=== PATIENT | male | born 1955 | race Caucasian/White ===

== ENCOUNTER → 2016-12-05 | Outpatient (CLI) | payer MEDICARE, MEDICAID | END | disposition home or self-care (01) | LOC: YCFC.O 08:16 | PROVIDERS: ATTEND Nurse Practitioner Family | DX: E78.2 Mixed hyperlipidemia (principal); N19 Unspecified kidney failure; Z12.5 Encounter for screening for malignant neoplasm of prostate; Z79.899 Other long term (current) drug therapy | CPT/HCPCS: 36415; 80053; 80061; 80307; 81001; 82043; 82570; 85025; G0103 ==

== ENCOUNTER 2017-01-17 15:26 | Emergency (ER) | payer MEDICARE, MEDICAID ==
--- NOTE | 2017-01-17 16:23 | RAD ---
EXAM DESCRIPTION: Abdomen Series CLINICAL HISTORY: 61 years Male ,upper and lower abd pain and nausea COMPARISON: 05/07/2016 TECHNIQUE: Frontal view chest x-ray and two views of the abdomen. FINDINGS: The cardiomediastinal silhouette appears unremarkable. No consolidating infiltrates or pleural effusions. No free air is identified beneath the hemidiaphragms. No dilated loops of bowel to suggest obstruction. Degenerative changes in the lower thoracic and the lumbar spine. IMPRESSION: No acute plain film abnormality is identified. Electronically signed by: Charla Anderson 01/17/2017 4:22 PM CDT
[2017-01-17 17:19] VITALS: TEMP 97.9
[2017-01-17] MEDS ORDERED: MAGNESIUM HYDROXIDE 30 ML UD PO ONE (17:20)
--- NOTE | 2017-01-17 17:20 | ED.PDOC ---
History of Present Illness - General Chief Complaint: Problem Stated Complaint: FLANK PAIN Time Seen by Provider: 01/17/17 15:40 Source: patient Exam Limitations: no limitations - History of Present Illness Initial Comments: The patient is a 61-year-old male presenting to the emergency room secondary to symptoms of mild nausea and some lower abdominal cramping intermittent for the last week. He has had constipation issues in the past. No diarrhea. No fevers. He has not been throwing up. He has had mildbackaches with the abdominal discomfort. He has been taking MiraLAX intermittently. The patient also does take some potassium in his had labs checked in a while. The patient does have some anxiety issues. Additionally he does seem to have some attention difficulties. Timing/Duration: 1 week Severity: mild Improving Factors: nothing Worsening Factors: nothing Associated Symptoms: denies symptoms Allergies/Adverse Reactions: Allergies NO KNOWN ALLERGY Allergy (Verified 08/18/14 23:58) Home Medications: Ambulatory Orders Esomeprazole Magnesium [Nexium] 20 mg PO DAILY 08/14/14 Potassium Chloride Microencaps [Klor-Con M20] 20 meq PO DAILY 08/14/14 Rosuvastatin Calcium [Crestor] 40 mg PO DAILY 08/14/14 Aspirin [Aspirin Adult Low Dose] 81 mg PO 05/03/16 Clopidogrel Bisulfate 75 mg PO DAILY 05/03/16 HYDROcodone 7.5MG/APAP 325MG [[place] 7.5/325] 7.5 mg PO PRN 05/03/16 Review of Systems - Review of Systems Constitutional: States: malaise EENTM: States: no symptoms reported Respiratory: States: no symptoms reported Cardiology: States: no symptoms reported Gastrointestinal/Abdominal: States: abdominal pain, constipation, nausea Genitourinary: States: no symptoms reported Musculoskeletal: States: no symptoms reported - chronic problems only Skin: States: no symptoms reported Neurological: States: anxiety, paresthesia - occasional in bilateral arms. Long -standing. Endocrine: States: no symptoms reported All other Systems: No Change from Baseline Past Medical History (General) - Patient Medical History Hx Seizures: No Hx Stroke: No Hx Dementia: No Hx Asthma: No Hx of COPD: Yes Hx Cardiac Disorders: No Hx Congestive Heart Failure: No Hx Pacemaker: No Hx Hypertension: Yes Hx Thyroid Disease: No Hx Diabetes: No Hx Gastroesophageal Reflux: Yes Hx Renal Disease: No Hx Cancer: No Hx of HIV: No Hx Hepatitis C: No Hx MRSA: No - Vaccination History Hx Tetanus, Diphtheria Vaccination: No Hx Influenza Vaccination: No Hx Pneumococcal Vaccination: No - Social History Hx Tobacco Use: Yes Hx Alcohol Use: No Hx Substance Use: No Hx Substance Use Treatment: No Hx Depression: No Hx Physical Abuse: No Hx Emotional Abuse: No Hx Suspected Abuse: No - Female History Patient : No Family Medical History - Family History Mother Family History: Unknown Physical Exam - Physical Exam General Appearance: Alert, Anxious, Comfortable, No apparent distress Eye Exam: bilateral normal Ears, Nose, Throat: hearing grossly normal Neck: non-tender, supple Respiratory: lungs clear, normal breath sounds, no respiratory distress, no accessory muscle use Cardiovascular/Chest: normal peripheral pulses, no edema, other - regular rate Peripheral Pulses: radial,right: 2+, radial,left: 2+, dorsalis pedis,right: 2+, dorsalis pedis,left: 2+ Gastrointestinal/Abdominal: soft, other - mild discomfort in the right upper quadrant and lower abdomen. No rebound or peritoneal signs. No definite hernias. No definite palpable masses. 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 Lab work and x-ray appear reassuring. Source is most likely constipation. The patient received a dose of milk of magnesia here today. He needs to increase his fluid intake. He needs to continue his MiraLAX. Adding something along the lines of FiberCon or Metamucil daily may also help. The patient does have chronic elevation of his muscle enzymes. He is uncertain what the source of this is and I do not have any records telling me what the source is. For now I'm not going to change any of his medications. He does need to discuss this with his primary care doctor the next time he sees him next week. He needs to follow-up with his primary care doctor next week. ER warnings were given for any worsening. - Results/Orders Results/Orders: Laboratory Results - last 24 hr 01/17/17 01/17/17 01/17/17 16:11 16:25 16:25 WBC 9.2 RBC 5.38 Hgb 16.3 Hct 49.5 MCV 91.9 MCH 30.3 MCHC 33.0 RDW 14.4 Plt Count 201 MPV 8.0 Absolute Neuts (auto) 6.30 Absolute Lymphs (auto) 2.00 Absolute Monos (auto) 0.70 Absolute Eos (auto) 0.10 Absolute Basos (auto) 0.10 Neutrophils % 68.7 Lymphocytes % 21.6 Monocytes % 7.8 Eosinophils % 1.0 Basophils % 0.9 PT INR PTT (SP) Sodium 138 Potassium 3.9 Chloride 103 Carbon Dioxide 26 Anion Gap 12.9 BUN 12 Creatinine 1.30 BUN/Creatinine Ratio 9.2 L Random Glucose 106 H Serum Osmolality 275.9 Calcium 9.1 Magnesium 2.1 Total Bilirubin 0.5 AST 26 ALT 22 Alkaline Phosphatase 65 Creatine Kinase 548 H* CK-MB (CK-2) 7.3 H* CK-MB (CK-2) % 1.33 Troponin I < 0.02 B-Natriuretic Peptide < 5.0 Serum Total Protein 7.2 Albumin 4.7 Globulin 2.5 Albumin/Globulin Ratio 1.9 Amylase 83 Lipase 30 Urine Color Yellow Urine Appearance Clear Urine pH 6.0 Ur Specific [place] 1.020 Urine Protein Negative Urine Glucose (UA) Negative Urine Ketones Negative Urine Blood Trace-intact H Urine Nitrite Negative Urine Bilirubin Small H Urine Urobilinogen 1.0 Ur Leukocyte Esterase Negative Urine RBC 0-1 Urine WBC 0 Ur Epithelial Cells 1-3 Urine Bacteria 0 01/17/17 16:25 WBC RBC Hgb Hct MCV MCH MCHC RDW Plt Count MPV Absolute Neuts (auto) Absolute Lymphs (auto) Absolute Monos (auto) Absolute Eos (auto) Absolute Basos (auto) Neutrophils % Lymphocytes % Monocytes % Eosinophils % Basophils % PT 11.2 INR 0.990 PTT (SP) 32.5 Sodium Potassium Chloride Carbon Dioxide Anion Gap BUN Creatinine BUN/Creatinine Ratio Random Glucose Serum Osmolality Calcium Magnesium Total Bilirubin AST ALT Alkaline Phosphatase Creatine Kinase CK-MB (CK-2) CK-MB (CK-2) % Troponin I B-Natriuretic Peptide Serum Total Protein Albumin Globulin Albumin/Globulin Ratio Amylase Lipase Urine Color Urine Appearance Urine pH Ur Specific [place] Urine Protein Urine Glucose (UA) Urine Ketones Urine Blood Urine Nitrite Urine Bilirubin Urine Urobilinogen Ur Leukocyte Esterase Urine RBC Urine WBC Ur Epithelial Cells Urine Bacteria abdominal series appears largely benign except for a large amount of constipation around the hepatic flexure and in the sigmoid colon. No evidence of obstruction. Departure - Departure Clinical Impression: Constipation Qualifiers: Constipation type: unspecified constipation type Qualified Code(s): K59.00 - Constipation, unspecified Disposition: Discharge to Home or Self Care Condition: Fair Departure Forms: ED Discharge - Pt. Copy, Patient Portal Self Enrollment Instructions: DI for Constipation Diet: regular diet - high-fiber low-fat Activity: increase activity as tolerated Referrals: Hema Sesay MD [Primary Care Provider] - 1-5 Days Home Medications: Ambulatory Orders Esomeprazole Magnesium [Nexium] 20 mg PO DAILY 08/14/14 Potassium Chloride Microencaps [Klor-Con M20] 20 meq PO DAILY 08/14/14 Rosuvastatin Calcium [Crestor] 40 mg PO DAILY 08/14/14 Aspirin [Aspirin Adult Low Dose] 81 mg PO 05/03/16 Clopidogrel Bisulfate 75 mg PO DAILY 05/03/16 HYDROcodone 7.5MG/APAP 325MG [[place] 7.5/325] 7.5 mg PO PRN 05/03/16 Additional Instructions: the patient is a 61-year-old male presenting to the emergency room secondary to abdominal discomfort. Lab work and x-ray appear reassuring. Source is most likely constipation. The patient received a dose of milk of magnesia here today. He needs to increase his fluid intake. He needs to continue his MiraLAX. Adding something along the lines of FiberCon or Metamucil daily may also help. The patient does have chronic elevation of his muscle enzymes. He is uncertain what the source of this is and I do not have any records telling me what the source is. For now I'm not going to change any of his medications. He does need to discuss this with his primary care doctor the next time he sees him next week. He needs to follow-up with his primary care doctor next week. ER warnings were given for any worsening.
[2017-01-17 17:39] VITALS: BP 161/83; O2SAT 98
== END 2017-01-17 17:35 | disposition home or self-care (01) ==
LOC: ER 15:26
DX: K59.00 Constipation, unspecified (principal); J44.9 Chronic obstructive pulmonary disease, unspecified; I10 Essential (primary) hypertension; K21.9 Gastro-esophageal reflux disease without esophagitis; Z87.891 Personal history of nicotine dependence

== ENCOUNTER → 2017-02-20 | Outpatient (CLI) | payer MEDICARE, MEDICAID ==
--- NOTE | 2017-02-20 16:29 | MRI ---
EXAM DESCRIPTION: Lumbar Spine w/o Contrast CLINICAL HISTORY: 61 years, Male, LOW BACK PAIN COMPARISON: FINDINGS: Sagittal and axial sequences. Bone marrow has normal signal characteristics. Conus terminates at L1. Straightening compatible muscular spasm. On sagittal sequences right-sided bulging disc T11-12. At T12-L1, right lateral protrusion about 5 mm flattens the right-sided thecal sac and impinges on the exit foramen. Mild narrowing and bulging disc L1-2 At L2-3 diffuse bulging disc with facet degenerative change. Moderately severe central stenosis. Impingement on the exiting right L2 root. Probable slight impingement on the left L2 root as well. At L3-4, bulging disc with facet degenerative change. Disc asymmetric to the right with foraminal narrowing and impingement on the exiting right L3 root. Mild central stenosis Narrowing and bulging disc L4-5. Bilateral foraminal narrowing more on the left with impingement on the exiting left L4 root. At L5-S1 disc and facets within normal limits. IMPRESSION: 1. Severe disc changes mid three lumbar interspaces. Changes most advanced at L2-3 with central stenosis, impingement on the exiting right L2 root and probable impingement on the left L2 root 2. Moderately severe changes L3-4 and L4-5 bulging disc and central stenosis. Impingement on the exiting right L3 root and left L4 root 3. Right lateral protrusion T12-L1 narrowing the right exit foramen. Other mild disc changes present as discussed Electronically signed by: Abdiaziz Hernandez MD 02/20/2017 4:28 PM CDT
== END | disposition home or self-care (01) ==
LOC: MRI 15:04
PROVIDERS: ATTEND General Practice
DX: M54.5 Low back pain (principal); M48.06 Spinal stenosis, lumbar region

== ENCOUNTER 2017-06-14 22:08 | Emergency (ER) | payer MEDICARE, MEDICAID ==
[2017-06-14 22:18] VITALS: TEMP 100.2
[2017-06-14] MEDS ORDERED: IBUPROFEN 200 MG TAB PO ONE (22:32)
[2017-06-14] MEDS ORDERED: OSELTAMIVIR 75 MG CAP PO ONE (23:34)
--- NOTE | 2017-06-14 23:37 | ED.PDOC ---
History of Present Illness - General Chief Complaint: Respiratory Problem Stated Complaint: coughing x's 4 hours Time Seen by Provider: 06/14/17 22:13 Source: patient Exam Limitations: no limitations - History of Present Illness Initial Comments: The patient is a 62-year-old male who presents after a whole 4 hours of coughing with a runny nose. No shortness of breath. No chest pain. No wheezing. No nausea or vomiting. No fever. No headache. He called an ambulance to bring him in oxygen saturations arecompletely normal. He is in no distress. Timing/Duration: 1-3 hours Severity: mild Improving Factors: nothing Worsening Factors: nothing Associated Symptoms: cough Allergies/Adverse Reactions: Allergies NO KNOWN ALLERGY Allergy (Verified 08/18/14 23:58) Home Medications: Ambulatory Orders Potassium Chloride Microencaps [Klor-Con M20] 20 meq PO DAILY 08/14/14 Rosuvastatin Calcium [Crestor] 40 mg PO DAILY 08/14/14 Clopidogrel Bisulfate 75 mg PO DAILY 05/03/16 Amitriptyline HCl 50 mg PO 06/14/17 Lisinopril 10 mg PO 06/14/17 Lubiprostone [Amitiza] 24 mcg PO 06/14/17 Oseltamivir Capsule [Tamiflu] 75 mg PO BID #10 cap 06/14/17 Pantoprazole Sodium 40 mg PO 06/14/17 Review of Systems - Review of Systems Constitutional: States: malaise EENTM: States: nose congestion Respiratory: States: cough Cardiology: States: no symptoms reported Gastrointestinal/Abdominal: States: no symptoms reported Genitourinary: States: no symptoms reported Musculoskeletal: States: no symptoms reported Skin: States: no symptoms reported Neurological: States: no symptoms reported Endocrine: States: no symptoms reported Hematologic/Lymphatic: States: no symptoms reported Past Medical History (General) - Patient Medical History Hx Seizures: No Hx Stroke: No Hx Dementia: No Hx Asthma: No Hx of COPD: Yes Hx Cardiac Disorders: No Hx Congestive Heart Failure: No Hx Pacemaker: No Hx Hypertension: Yes Hx Thyroid Disease: No Hx Diabetes: No Hx Gastroesophageal Reflux: Yes Hx Renal Disease: No Hx Cancer: No Hx of HIV: No Hx Hepatitis C: No Hx MRSA: No Surgical History: no surgical history - Vaccination History Hx Tetanus, Diphtheria Vaccination: No Hx Influenza Vaccination: Yes Hx Pneumococcal Vaccination: No - Social History Hx Tobacco Use: Yes Hx Alcohol Use: No Hx Substance Use: No Hx Substance Use Treatment: No Hx Depression: No Hx Physical Abuse: No Hx Emotional Abuse: No Hx Suspected Abuse: No - Female History Patient : No Family Medical History - Family History Mother Family History: Unknown Physical Exam - Physical Exam General Appearance: Alert, Comfortable, No apparent distress Eye Exam: bilateral normal Ears, Nose, Throat: hearing grossly normal, nasal congestion Neck: full range of motion, supple Respiratory: lungs clear, normal breath sounds, no respiratory distress, no accessory muscle use Cardiovascular/Chest: normal peripheral pulses, no edema, tachycardia - regular Peripheral Pulses: radial,right: 2+, radial,left: 2+, dorsalis pedis,right: 2+, dorsalis pedis,left: 2+ Gastrointestinal/Abdominal: non tender, soft Rectal Exam: deferred Back Exam: normal inspection, no CVA tenderness Extremity: normal range of motion, non-tender, normal inspection, no pedal edema , normal capillary refill 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 His lungs are clear at this point. He is being given a dose of ibuprofen and Tamiflu. He'll be placed on Tamiflu for 5 days. Ibuprofen can be used for symptomatic relief as well. He will likely have symptoms for the next 4-5 days. He needs to keep well-hydrated. ER warnings were given for any worsening. He should follow up with his primary care doctor towards the end of the week. Departure - Departure Clinical Impression: Influenza Disposition: Discharge to Home or Self Care Condition: Fair Departure Forms: ED Discharge - Pt. Copy, Patient Portal Self Enrollment Instructions: Influenza Diet: regular diet Activity: increase activity as tolerated Referrals: Hema Sesay MD [Primary Care Provider] - 1-5 Days Prescriptions: Oseltamivir Capsule [Tamiflu] 75 mg PO BID #10 cap Home Medications: Ambulatory Orders Potassium Chloride Microencaps [Klor-Con M20] 20 meq PO DAILY 08/14/14 Rosuvastatin Calcium [Crestor] 40 mg PO DAILY 08/14/14 Clopidogrel Bisulfate 75 mg PO DAILY 05/03/16 Amitriptyline HCl 50 mg PO 06/14/17 Lisinopril 10 mg PO 06/14/17 Lubiprostone [Amitiza] 24 mcg PO 06/14/17 Oseltamivir Capsule [Tamiflu] 75 mg PO BID #10 cap 06/14/17 Pantoprazole Sodium 40 mg PO 06/14/17 Additional Instructions: the patient is a 62-year-old male presenting after a cough for 3-4 hours that is tested positive for the flu. His lungs are clear at this point. He is being given a dose of ibuprofen and Tamiflu. He'll be placed on Tamiflu for 5 days. Ibuprofen can be used for symptomatic relief as well. He will likely have symptoms for the next 4-5 days. He needs to keep well-hydrated. ER warnings were given for any worsening. He should follow up with his primary care doctor towards the end of the week.
[2017-06-14 23:52] VITALS: BP 170/85; O2SAT 97
== END 2017-06-14 23:52 | disposition home or self-care (01) ==
LOC: ER 22:08
DX: J11.1 Influenza due to unidentified influenza virus with other respiratory manifestations (principal); J44.9 Chronic obstructive pulmonary disease, unspecified; I10 Essential (primary) hypertension; K21.9 Gastro-esophageal reflux disease without esophagitis; Z79.899 Other long term (current) drug therapy; Z87.891 Personal history of nicotine dependence

== ENCOUNTER 2017-11-14 13:28 | Emergency (ER) | payer MEDICARE, MEDICAID ==
[2017-11-14 13:46] VITALS: TEMP 98.9
--- NOTE | 2017-11-14 13:57 | ED.PDOC ---
History of Present Illness - General Chief Complaint: General Stated Complaint: nausea, light headed Time Seen by Provider: 11/14/17 13:33 Source: patient Exam Limitations: no limitations - History of Present Illness Initial Comments: the patient is a 62-year-old male presenting to the emergency room secondary to a feeling of mild malaise along with some nausea but no vomiting. The patient has been on doxycycline for the last 4 days as a preoperative medication for sinus surgery. Yesterday he got out in the heat for most of the day and in the sunlight while taking this medication. He is sexually felt some malaise and some nausea. He does have long-standing history of gastritis and reflux. He has not been having any diarrhea. He has not thrown up. No syncope or near syncope. His surgery did get delayed for some reason. Timing/Duration: unsure Severity: mild Improving Factors: nothing Worsening Factors: nothing Associated Symptoms: malaise, nausea/vomiting Allergies/Adverse Reactions: Allergies NO KNOWN ALLERGY Allergy (Verified 11/14/17 13:46) Home Medications: Ambulatory Orders Rosuvastatin Calcium [Crestor] 40 mg PO DAILY 08/14/14 Clopidogrel Bisulfate 75 mg PO DAILY 05/03/16 Lisinopril 10 mg PO DAILY 06/14/17 Lubiprostone [Amitiza] 24 mcg PO BID 06/14/17 Pantoprazole Sodium 40 mg PO DAILY 06/14/17 Doxycycline Hyclate [Vibramycin] 100 mg PO BID 11/14/17 Ondansetron [Zofran Odt] 4 mg PO Q4H PRN #10 tab 11/14/17 Promethazine HCl 25 mg PO Q6H 11/14/17 Sucralfate Tab [Carafate Tab] 1 gm PO QID #60 tab 11/14/17 Review of Systems - Review of Systems Constitutional: States: malaise EENTM: States: no symptoms reported Respiratory: States: no symptoms reported Cardiology: States: no symptoms reported Gastrointestinal/Abdominal: States: nausea. Denies: abdominal pain, constipation, diarrhea, vomiting Genitourinary: States: no symptoms reported Musculoskeletal: States: no symptoms reported Skin: States: no symptoms reported Neurological: States: no symptoms reported Endocrine: States: no symptoms reported All other Systems: No Change from Baseline Past Medical History (General) - Patient Medical History Hx Seizures: No Hx Stroke: No Hx Dementia: No Hx Asthma: No Hx of COPD: Yes Hx Cardiac Disorders: No - hyperlipidemia Hx Congestive Heart Failure: No Hx Pacemaker: No Hx Hypertension: Yes Hx Thyroid Disease: No Hx Diabetes: No Hx Gastroesophageal Reflux: Yes Hx Renal Disease: No Hx Cancer: No Hx of HIV: No Hx Hepatitis C: No Hx MRSA: No Surgical History: no surgical history - Vaccination History Hx Tetanus, Diphtheria Vaccination: No Hx Influenza Vaccination: Yes Hx Pneumococcal Vaccination: No - Social History Hx Tobacco Use: Yes Hx Alcohol Use: No Hx Substance Use: No Hx Substance Use Treatment: No Hx Depression: No Hx Physical Abuse: No Hx Emotional Abuse: No Hx Suspected Abuse: No - Female History Patient : No Family Medical History - Family History Mother Family History: Unknown Physical Exam - Physical Exam General Appearance: Alert, Comfortable, No apparent distress Eye Exam: bilateral normal Ears, Nose, Throat: hearing grossly normal, normal pharynx, nasal congestion Neck: full range of motion, supple Respiratory: lungs clear, normal breath sounds, no respiratory distress, no accessory muscle use Cardiovascular/Chest: normal peripheral pulses, no edema, other - regular rate Peripheral Pulses: radial,right: 2+, radial,left: 2+ Gastrointestinal/Abdominal: non tender, soft Rectal Exam: deferred Back Exam: no CVA tenderness, no vertebral tenderness Extremity: normal range of motion, non-tender, no pedal edema, normal capillary refill 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 He does need to increase his fluid intake over the next day or 2. He needs to take the doxycycline after he eats a little bit of food. He should also avoid being outside in the heat and sunlight with this medication. The patient is going to be placed additionally on a couple of weeks of Carafate to help control his gastritis symptoms and he will also be written for some Zofran for as needed use for any further nausea. ER warnings were given. Needs to keep his follow-up for his surgery appointment and with his primary care doctor. Departure - Departure Clinical Impression: Dehydration, mild Medication side effect Qualifiers: Encounter type: initial encounter Qualified Code(s): T88.7XXA - Unspecified adverse effect of drug or medicament, initial encounter Gastritis Qualifiers: Gastritis type: unspecified gastritis Chronicity: acute Gastritis bleeding: without bleeding Qualified Code(s): K29.00 - Acute gastritis without bleeding Disposition: Discharge to Home or Self Care Condition: Fair Departure Forms: ED Discharge - Pt. Copy, Patient Portal Self Enrollment Instructions: DI for Gastritis, Doxycycline Diet: bland diet Activity: increase activity as tolerated Referrals: Hema Sesay MD [Primary Care Provider] - 1-2 Weeks Prescriptions: Ondansetron [Zofran Odt] 4 mg PO Q4H PRN #10 tab PRN Reason: Vomiting Sucralfate Tab [Carafate Tab] 1 gm PO QID #60 tab Home Medications: Ambulatory Orders Rosuvastatin Calcium [Crestor] 40 mg PO DAILY 08/14/14 Clopidogrel Bisulfate 75 mg PO DAILY 05/03/16 Lisinopril 10 mg PO DAILY 06/14/17 Lubiprostone [Amitiza] 24 mcg PO BID 06/14/17 Pantoprazole Sodium 40 mg PO DAILY 06/14/17 Doxycycline Hyclate [Vibramycin] 100 mg PO BID 11/14/17 Ondansetron [Zofran Odt] 4 mg PO Q4H PRN #10 tab 11/14/17 Promethazine HCl 25 mg PO Q6H 11/14/17 Sucralfate Tab [Carafate Tab] 1 gm PO QID #60 tab 11/14/17 Additional Instructions: the patient is a 62-year-old male presenting to the emergency room secondary to some nausea but is likely related to some mild dehydration from yesterday's activity as well as some gastritis likely worsened by the doxycycline that he is taking. He does need to increase his fluid intake over the next day or 2. He needs to take the doxycycline after he eats a little bit of food. He should also avoid being outside in the heat and sunlight with this medication. The patient is going to be placed additionally on a couple of weeks of Carafate to help control his gastritis symptoms and he will also be written for some Zofran for as needed use for any further nausea. ER warnings were given. Needs to keep his follow-up for his surgery appointment and with his primary care doctor. he should also hold his cholesterol medication while taking the antibiotic.
[2017-11-14 14:18] VITALS: BP 146/77; O2SAT 96
== END 2017-11-14 14:18 | disposition home or self-care (01) ==
LOC: ER 13:28
DX: K29.00 Acute gastritis without bleeding (principal); T88.7XXA Unspecified adverse effect of drug or medicament, initial encounter; R11.0 Nausea; E86.0 Dehydration; I10 Essential (primary) hypertension; E78.5 Hyperlipidemia, unspecified; J44.9 Chronic obstructive pulmonary disease, unspecified; Z79.899 Other long term (current) drug therapy

== ENCOUNTER → 2018-05-17 | Outpatient (CLI) | payer MEDICARE, MEDICAID ==
--- NOTE | 2018-05-17 11:46 | CT ---
EXAM DESCRIPTION: Sinuses w/wo Contrast CLINICAL HISTORY: 63 years Male, CHRONIC SINUSITIS COMPARISON: None. TECHNIQUE: Contiguous axial images through the maxillofacial area were obtained before and after intravenous contrast administration. Sagittal and coronal reconstructions were reviewed. This exam was performed according to our departmental dose-optimization program, which includes automated exposure control, adjustment of the mA and/or kV according to patient size and/or use of iterative reconstruction technique. FINDINGS: Small mucous retention cyst is noted in the right maxillary sinus. Remainder of the paranasal sinuses sinuses are well aerated. The mastoid air cells are also well-aerated. The cribriform plate and bilateral lamina papyracea are intact. There is mild deviation of the nasal septum to the left side. The infundibula are patent bilaterally. The globes appear normal on both sides. The visualized brain parenchyma demonstrates no gross abnormality. IMPRESSION: Small mucous retention cyst is noted in the right maxillary sinus. Remainder of the paranasal sinuses appear normal. Electronically signed by: Lila Flannery MD 05/17/2018 11:45 AM MANAGER PET
== END ==
LOC: CT 09:00
PROVIDERS: ATTEND General Practice
DX: J32.9 Chronic sinusitis, unspecified (principal)

== ENCOUNTER → 2018-10-21 | Outpatient (CLI) | payer MEDICARE, MEDICAID ==
--- NOTE | 2018-10-21 15:52 | MRI ---
MR LUMBAR SPINE WITHOUT IV CONTRAST HISTORY: 63 years Male RADICULOPATHY LUMBAR REGION COMPARISON: February 20, 2017. CT abdomen and pelvis dated October 05, 2014. TECHNIQUE: Multiplanar multisequence MR imaging of the lumbar spine was performed without the use of intravenous contrast. FINDINGS: There 5 lumbar-type vertebral bodies. The most inferior disc space is designated as L5-S1. Mildly heterogeneous marrow signal throughout, which may be in part age-related. There is moderate height loss of the L5 vertebral body. Mild height loss of the remaining imaged lumbar and thoracic vertebral bodies. Modic type I and type II degenerative signal changes are demonstrated at multiple endplates. Multiple endplate irregularities consistent with Schmorl's node formation again noted. Overall the appearance of the vertebral bodies is unchanged from the prior comparison study. No evidence of a pathologic marrow infiltrative process. Included cord and caudal roots demonstrate normal morphology and MR signal. Conus terminates at L1. Prominent dorsal epidural adipose tissue is present throughout the lumbar spine. Limited evaluation of the included regional soft tissues and viscera demonstrates no acute abnormalities. A few scattered mildly prominent retroperitoneal lymph nodes appear unchanged. Intervertebral levels: T12-L1: Mild disc desiccation and disc height loss. 4 mm right eccentric broad-based posterior disc bulge indents the thecal sac. There is resultant moderate central canal stenosis with AP diameter of the thecal sac measuring 7 mm. Severe right lateral recess stenosis. Mild bilateral facet arthrosis. Moderate right neuroforaminal stenosis. L1-L2: Mild disc desiccation and disc height loss. 3 mm annular disc bulge indents the thecal sac. In conjunction with severe ligamentum flavum hypertrophy, there is severe central canal stenosis with AP diameter of the thecal sac measuring 7 mm. Moderate bilateral facet arthrosis. Mild bilateral lateral recess stenosis. No significant neuroforaminal stenosis observed. L2-L3: Mild disc desiccation. 4 mm annular disc bulge. In conjunction with severe ligamentum flavum hypertrophy, there is severe central canal stenosis with AP diameter of the thecal sac measuring 4 mm and complete effacement of CSF space. Severe bilateral facet arthrosis. Severe bilateral lateral recess stenosis. Moderate left neuroforaminal stenosis. L3-L4: Mild disc desiccation and disc height loss. 4 mm annular disc bulge indents the thecal sac. In conjunction with severe ligamentum flavum hypertrophy, there is severe central canal stenosis with AP diameter of the thecal sac measuring 6 mm. Severe bilateral facet arthrosis. Severe bilateral lateral recess stenosis. Moderate bilateral neuroforaminal stenosis. L4-L5: Moderate disc desiccation. Severe disc height loss. 6 mm broad-based posterior disc osteophyte complex. In conjunction with severe ligamentum flavum hypertrophy, there is severe central canal stenosis with AP diameter of the thecal sac measuring 3 mm in complete effacement of CSF space. Severe bilateral facet arthrosis. Severe bilateral lateral recess stenosis. Severe bilateral neuroforaminal stenosis. L5-S1: Disc unremarkable. No central canal stenosis. Severe bilateral facet arthrosis. Severe bilateral neuroforaminal stenosis. IMPRESSION: Multilevel degenerative disc disease, epidural lipomatosis, facet arthrosis, and ligamentum flavum hypertrophy contribute to central canal stenosis at multiple levels, severe at L2-L3 and L4-L5. Severe neuroforaminal stenosis bilaterally at L4-L5 and L5-S1. Severe bilateral lateral recess stenosis from L2-L5. Electronically signed by: Jono Balderas MD 10/21/2018 3:50 PM CDT
== END ==
LOC: MRI 10:00
PROVIDERS: ATTEND General Practice
DX: M51.16 Intervertebral disc disorders with radiculopathy, lumbar region (principal); M48.062 Spinal stenosis, lumbar region with neurogenic claudication; M47.896 Other spondylosis, lumbar region; E88.2 Lipomatosis, not elsewhere classified

== ENCOUNTER → 2018-11-26 | Outpatient (CLI) | payer MEDICARE, MEDICAID ==
--- NOTE | 2018-11-28 16:01 | CT ---
Procedure: CT LUNG SCREENING Exam Date: 11/26/2018. Ordering Provider: Racheal Whitmore Clinical Indication: PERSONAL HISTORY OF NICOTINE DEPENDENCE. Current cigarette smoker. 30+ pack years. This patient meets eligibility criteria for low-dose CT lung cancer screening. Comparison: Abdominal CT scan 10/05/2014. Technique: Using a multislice scanner, sequential helical axial imaging was obtained in the thorax, 2.5 mm thickness, 2.5 mm separation, from the level of the thoracic inlet through the lung bases without IV contrast. A low dose protocol was utilized for BMI greater than 30: BMI: 35.5. CTDI: 2.94 mGy. 120. kVp. 75 mA. DLP 114.72. 2D sagittal and coronal reconstructed images, 6.0 mm thickness, were obtained. This exam was performed according to our departmental dose optimization program which includes use of automated exposure control, adjustment of the mA and/or kV according to patient size and/or use of iterative reconstruction technique. Nodule measurements under 10 mm are given as mean value of 3 axes diameters. FINDINGS: Lungs and large airways: Scattered small dilated airspaces in the bilateral upper lobes. No abnormal nodules or masses. No focal infiltrates. Minimal bilateral perihilar peribronchial wall cuffing. Pleura and space: Bilateral focal pleural thickening. No calcification on the posterior medial aspect of the left hemidiaphragm Mediastinum and katherin: evaluation limited by low dose technique and lack of IV contrast. No enlarged lymph nodes or dominant soft tissue masses. Heart and great vessels: Atherosclerotic calcification and some of the included brachiocephalic vessels, aortic arch, and descending thoracic aorta. Also coronary arteries. Chest wall, lower neck, axillae: Evaluation also limited by same factors as described above. No enlarged lymph nodes or soft tissue masses. Upper abdomen: Evaluation limited by low-dose technique. Included peritoneal cavity with no free air or fluid. Normal size and density of adrenal glands and spleen. Gallbladder liver and pancreas partially visualized. Osseous structures: Evaluation limited by low dose MIP technique. Spondylosis at multiple levels of the thoracic spine. Arthrosis in the bilateral sternoclavicular joints. No lytic or blastic lesions. IMPRESSION: 1. Early emphysematous changes in the upper lobes. No abnormal nodules or masses. No focal infiltrates. Minimal focal pleural thickening. [facility] Best Practice recommendations: Please see below for Lung RADS category and FOLLOW-UP.* *Lung RADS category Category 1 - No nodule or definitely benign nodules (probability of malignancy less than 1%). Follow-up: Continue annual screening with Low Dose Chest CT in 12 months. Electronically signed by: Patrick Julian MD 11/28/2018 3:59 PM CDT
== END ==
LOC: ECHO 08:43
PROVIDERS: ATTEND Nurse Practitioner Family
DX: Z87.891 Personal history of nicotine dependence (principal); J43.9 Emphysema, unspecified; R01.1 Cardiac murmur, unspecified; I51.7 Cardiomegaly
CPT/HCPCS: 93303; G0297

== ENCOUNTER 2019-09-27 11:21 | Observation (INO) | payer MEDICARE, MEDICAID ==
[2019-09-27] MEDS ORDERED: SODIUM CHLORIDE 0.9% (FLUSH) 10 ML SYG IV PRN ×2 (11:47→15:35)
[2019-09-27] MEDS ORDERED: METOPROLOL TARTRATE INJ 5 MG/5 ML VIAL IV ONE (11:49)
--- NOTE | 2019-09-27 12:15 | ED.PDOC ---
History of Present Illness - General Chief Complaint: General Stated Complaint: right arm tingling,lightheadedness Time Seen by Provider: 09/27/19 11:38 Source: patient, RN notes reviewed, Vital Signs reviewed Exam Limitations: no limitations - History of Present Illness Initial Comments: Patient is a 64-year-old white male who presents with complaints of right arm tingling and numbness for the last 3 weeks. He also complains of intermittent lightheadedness. Patient denies any other symptoms at all. Nothing makes the numbness of this arm better or worse. He has no neck pain. Patient denies any headache, dizziness, blurry vision, chest pain, shortness of breath, nausea, vomiting, diarrhea. The tingling in his right arm does not radiate anyplace. He denies any weakness. Patient is poor historian. Timing/Duration: other - 3 weeks Severity: mild Improving Factors: nothing Worsening Factors: nothing Associated Symptoms: denies symptoms Allergies/Adverse Reactions: Allergies Ibuprofen Allergy (Verified 09/27/19 11:38) Naproxen [From Aleve] Adverse Reaction (Verified 09/27/19 11:38) Home Medications: Ambulatory Orders Amlodipine Besylate 5 mg PO DAILY 09/27/19 Gabapentin 800 mg PO TID 09/27/19 Review of Systems - Review of Systems Constitutional: States: no symptoms reported, see HPI. Denies: chills, fever, malaise EENTM: States: no symptoms reported, see HPI. Denies: blurred vision, double vision Respiratory: States: no symptoms reported. Denies: cough, short of breath, wheezing Cardiology: States: no symptoms reported. Denies: chest pain, palpitations, syncope Gastrointestinal/Abdominal: States: no symptoms reported. Denies: abdominal pain, diarrhea, nausea, vomiting Genitourinary: States: no symptoms reported Musculoskeletal: States: no symptoms reported. Denies: back pain, neck pain Skin: States: no symptoms reported. Denies: change in color, rash Neurological: States: see HPI, paresthesia, tingling - Right arm Endocrine: States: no symptoms reported Hematologic/Lymphatic: States: no symptoms reported All other Systems: No Change from Baseline Past Medical History (General) - Patient Medical History Hx Seizures: No Hx Stroke: No Hx Dementia: No Hx Asthma: No Hx of COPD: Yes Hx Cardiac Disorders: No - hyperlipidemia Hx Congestive Heart Failure: No Hx Pacemaker: No Hx Hypertension: Yes Hx Thyroid Disease: No Hx Diabetes: No Hx Gastroesophageal Reflux: Yes Hx Renal Disease: No Hx Cancer: No Hx of HIV: No Hx Hepatitis C: No Hx MRSA: No - Vaccination History Hx Tetanus, Diphtheria Vaccination: No Hx Influenza Vaccination: Yes Hx Pneumococcal Vaccination: No - Social History Hx Tobacco Use: Yes Hx Alcohol Use: No Hx Substance Use: No Hx Substance Use Treatment: No Hx Depression: No Hx Physical Abuse: No Hx Emotional Abuse: No Hx Suspected Abuse: No - Female History Patient : No Family Medical History - Family History Mother Family History: Unknown Physical Exam - Physical Exam General Appearance: Alert, Comfortable, Obese, Well Developed, Well Hydrated, Well Nourished Eye Exam: bilateral normal Ears, Nose, Throat: hearing grossly normal, normal ENT inspection, normal pharynx Neck: non-tender, full range of motion, supple, normal inspection Respiratory: chest non-tender, lungs clear, normal breath sounds, no respiratory distress Cardiovascular/Chest: normal peripheral pulses, no edema, no gallop, no JVD, tachycardia, systolic murmur - 2 out of 6 holosystolic Peripheral Pulses: radial,right: 2+, radial,left: 2+ Gastrointestinal/Abdominal: normal bowel sounds, non tender, soft, distended Back Exam: normal inspection, no CVA tenderness, no vertebral tenderness Extremity: normal range of motion, non-tender, normal inspection, no pedal edema, no calf tenderness, normal capillary refill, pelvis stable Neurologic: shoe stitcher II-XII nml as tested, alert, normal mood/affect, oriented x 3, sensory deficit - Right arm with some mild loss of two-point discrimination. Skin Exam: normal color, warm/dry Lymphatic: no adenopathy Progress - Progress Progress: Differential diagnosis: CVA, TIA, cervical radiculopathy, neural plexus injury among others. 09/27/19 13:18 Patient with what appears to be a subacute stroke which he is 3 weeks out from having had. Patient does need further evaluation with MRI and carotid ultrasound. Additionally he needs better blood pressure control. I discussed this patient with Miranda Duenas NP, the hospitalist on duty. She agrees with admission to the hospital for further evaluation and management. I discussed this with the patient he voices understanding and agreement with the plan of care. Plan on admission at this time. Robe Payne M.D. #[id number] - Results/Orders Results/Orders: EXAM DESCRIPTION: CT Head CLINICAL HISTORY: right arm numbness x 3 weeks. COMPARISON: None available TECHNIQUE: Contiguous axial images through the head were obtained without intravenous contrast administration. Sagittal and coronal reconstructions were reviewed. FINDINGS: Focal hypodensity is noted in the left periventricular frontal lobe white matter. This represents an age-indeterminate infarct. No evidence of acute major vascular territorial infarct or intraparenchymal hemorrhage. No intra- axial or extra-axial fluid collections are identified. The ventricles and cister ns appear normal in caliber. The sella and suprasellar regions appear normal. The structures of the posterior fossa are intact. The globes are intact bilaterally. The visualized paranasal sinuses and mastoid air cells are well- aerated. Review of the bones demonstrates no gross instability. IMPRESSION: Focal hypodensity is noted in the left periventricular frontal lobe white matter. This represents an age-indeterminate infarct. Otherwise, no CT evidence of acute intracranial process. This exam was performed according to our departmental dose-optimization program, which includes automated exposure control, adjustment of the mA and/or kV according to patient size and/or use of iterative reconstruction technique. Electronically signed by: Lila Flannery MD 09/27/2019 12:23 EXAM DESCRIPTION: Chest,1 View CLINICAL HISTORY: 64 years Male, right arm numbness x 3 weeks. COMPARISON: Radiograph of the chest dated 05/03/2016. TECHNIQUE: AP radiograph of the chest was obtained. FINDINGS: Trachea is midline.The cardiomediastinal silhouette is mildly prominent in size. The pulmonary vasculature is within normal limits.The lungs are clear with no acute consolidation.No evidence of pleural effusions. IMPRESSION: Mildly enlarged cardiac silhouette. No acute process. Electronically signed by: Lila Flannery MD 09/27/2019 12:20 09/27/19 11:47 Telemetry .ONCE Sodium Chloride 0.9% (Flush) [Saline Flush Syringe] 10 ml IV PRN PRN 09/27/19 12:00 EKG STAT Laboratory Results - last 24 hr 09/27/19 09/27/19 09/27/19 12:00 12:00 12:00 WBC 9.0 RBC 5.08 Hgb 16.5 Hct 48.3 MCV 95.1 H MCH 32.4 H MCHC 34.1 RDW 13.3 Plt Count 214 MPV 7.5 Absolute Neuts (auto) 6.80 Absolute Lymphs (auto) 1.40 Absolute Monos (auto) 0.70 Absolute Eos (auto) 0.00 Absolute Basos (auto) 0.10 Neutrophils % 75.3 Lymphocytes % 15.4 L Monocytes % 8.1 Eosinophils % 0.5 L Basophils % 0.7 PT 10.3 INR 1.04 PTT (SP) 25.6 Sodium 136 Potassium 3.4 L Chloride 103 Carbon Dioxide 26 Anion Gap 10.4 L BUN 7 Creatinine 1.11 BUN/Creatinine Ratio 6.3 L POC Glucose Random Glucose 105 Serum Osmolality 270.3 L Calcium 9.0 Total Bilirubin 0.9 AST 18 ALT 12 Alkaline Phosphatase 61 Creatine Kinase 378 H* CK-MB (CK-2) 7.4 H* CK-MB (CK-2) % 1.96 Troponin I 0.03 Serum Total Protein 7.0 Albumin 4.2 Globulin 2.8 Albumin/Globulin Ratio 1.5 09/27/19 12:00 WBC RBC Hgb Hct MCV MCH MCHC RDW Plt Count MPV Absolute Neuts (auto) Absolute Lymphs (auto) Absolute Monos (auto) Absolute Eos (auto) Absolute Basos (auto) Neutrophils % Lymphocytes % Monocytes % Eosinophils % Basophils % PT INR PTT (SP) Sodium Potassium Chloride Carbon Dioxide Anion Gap BUN Creatinine BUN/Creatinine Ratio POC Glucose 83 Random Glucose Serum Osmolality Calcium Total Bilirubin AST ALT Alkaline Phosphatase Creatine Kinase CK-MB (CK-2) CK-MB (CK-2) % Troponin I Serum Total Protein Albumin Globulin Albumin/Globulin Ratio Departure - Departure Clinical Impression: Accelerated hypertension CVA (cerebral vascular accident) Qualifiers: CVA mechanism: unspecified Qualified Code(s): I63.9 - Cerebral infarction, unspecified Time of Disposition: 13:20 Disposition: Admit Patient Condition: Fair Departure Forms: ED Discharge - Pt. Copy, Patient Portal Self Enrollment Referrals: Hema Sesay MD [Primary Care Provider] - 1-2 Weeks Home Medications: Ambulatory Orders Amlodipine Besylate 5 mg PO DAILY 09/27/19 Gabapentin 800 mg PO TID 09/27/19 Decision To Admit - Decistion To Admit Decision to Admit Date: 09/27/19 Decision to Admit Time: 13:10
--- NOTE | 2019-09-27 12:22 | RAD ---
EXAM DESCRIPTION: Chest,1 View CLINICAL HISTORY: 64 years Male, right arm numbness x 3 weeks. COMPARISON: Radiograph of the chest dated 05/03/2016. TECHNIQUE: AP radiograph of the chest was obtained. FINDINGS: Trachea is midline.The cardiomediastinal silhouette is mildly prominent in size. The pulmonary vasculature is within normal limits.The lungs are clear with no acute consolidation.No evidence of pleural effusions. IMPRESSION: Mildly enlarged cardiac silhouette. No acute process. Electronically signed by: Lila Flannery MD 09/27/2019 12:20 PM CDT
--- NOTE | 2019-09-27 12:24 | CT ---
EXAM DESCRIPTION: Head CLINICAL HISTORY: right arm numbness x 3 weeks. COMPARISON: None available TECHNIQUE: Contiguous axial images through the head were obtained without intravenous contrast administration. Sagittal and coronal reconstructions were reviewed. FINDINGS: Focal hypodensity is noted in the left periventricular frontal lobe white matter. This represents an age-indeterminate infarct. No evidence of acute major vascular territorial infarct or intraparenchymal hemorrhage. No intra-axial or extra-axial fluid collections are identified. The ventricles and cisterns appear normal in caliber. The sella and suprasellar regions appear normal. The structures of the posterior fossa are intact. The globes are intact bilaterally. The visualized paranasal sinuses and mastoid air cells are well-aerated. Review of the bones demonstrates no gross instability. IMPRESSION: Focal hypodensity is noted in the left periventricular frontal lobe white matter. This represents an age-indeterminate infarct. Otherwise, no CT evidence of acute intracranial process. This exam was performed according to our departmental dose-optimization program, which includes automated exposure control, adjustment of the mA and/or kV according to patient size and/or use of iterative reconstruction technique. Electronically signed by: Lila Flannery MD 09/27/2019 12:23 PM CDT
[2019-09-27] MEDS ORDERED: NICOTINE PATCH 21 MG TD ONE (14:18)
[2019-09-27] MEDS ORDERED: ONDANSETRON INJ 4 MG/2 ML VIAL IV PRN (15:35)
[2019-09-27] MEDS ORDERED: ALPRAZolam 0.25 MG TAB PO PRN (15:46)
[2019-09-27] MEDS ORDERED: IV SET AND CAP CHANGE INJ INJ SCH (16:00)
[2019-09-27] MEDS ORDERED: ENOXAPARIN SODIUM 40 MG/0.4 ML SYG SUBCU SCH (16:00)
[2019-09-27] MEDS ORDERED: PANTOPRAZOLE SODIUM IV 40 MG VIAL ONE (19:10)
[2019-09-27] MEDS ORDERED: METOPROLOL TARTRATE 25 MG TAB PO ONE (20:26)
[2019-09-27] MEDS ORDERED: GABAPENTIN 400 MG CAP PO SCH (21:00)
[2019-09-27] MEDS ORDERED: SODIUM CHLORIDE 0.9% (FLUSH) 10 ML SYG IV SCH (21:00)
[2019-09-27] MEDS ORDERED: METOPROLOL TARTRATE 50 MG TAB PO SCH (21:00)
[2019-09-27 22:30] VITALS: BP 180/78; TEMP 97.9; O2SAT 95
[2019-09-28] MEDS ORDERED: PANTOPRAZOLE SODIUM IV 40 MG VIAL ONE (05:54)
[2019-09-28] MEDS ORDERED: PANTOPRAZOLE SODIUM IV 40 MG VIAL IV SCH (06:30)
--- NOTE | 2019-09-28 08:08 | SSS ---
SUPERVISING PHYSICIAN: Lonnie Martinez MD DATE OF ADMISSION: 09/27/19 DATE OF DISCHARGE: 09/27/19 DISCHARGE DIAGNOSIS: 1. Right sided weakness and numbness. 2. Transient ischemic attack versus cerebrovascular accident times two to three weeks ago. 3. Hypertensive crisis. His admitting blood pressure was 190/124. 4. Poor medical compliance. 5. Hypertension. 6. Chronic obstructive pulmonary disease without exacerbation. 7. Tobacco abuse. HISTORY OF PRESENT ILLNESS: This is a 64-year-old male patient who came to the Emergency Room with complaints of right arm tingling and numbness that has been going on for about three weeks. He also has occasional lightheadedness. There are no other symptoms noted. He had actually been to see his primary care physician, Dr. Sesay, and saw a nurse practitioner at that time and was sent to the Emergency Room. In the Emergency Room, his initial vital signs were temperature 99.5, heart rate 92, blood pressure 198/124, respiratory rate 20, O2 saturation 96% on room air. Laboratory studies were done and CBC was unremarkable. Coagulation studies were within normal limits. Sodium 136, potassium 3.4, chloride 103, carbon dioxide 26, anion gap 10.4, BUN 7, creatinine 1.11. Creatinine kinase 378, CK-MB 7.4, troponin 0.03. He was given some Lopressor IV in the Emergency Room and his blood pressure came down to 172/92. His chest x-ray showed mildly enlarged cardiac silhouette with no acute process. Head CT shows focal hypodensities noted in the left periventricular frontal lobe white matter. This represents an age-indeterminate infarct. Otherwise, no CT evidence of acute intracranial process. I was called for hospital admission and the patient was placed in observation. PAST MEDICAL HISTORY: 1. Hypertension. 2. Chronic obstructive pulmonary disease. PAST SURGICAL HISTORY: Unknown. OUTPATIENT MEDICATIONS: 1. Amlodipine. 2. Gabapentin. ALLERGIES: IBUPROFEN, NAPROSYN. SOCIAL HISTORY: He lives alone in [place]. He smokes cigarettes and he denies alcohol or illicit drug use. REVIEW OF SYSTEMS: Negative except as per history of present illness. PHYSICAL EXAMINATION: VITAL SIGNS: Temperature 98.1. Heart rate 75. Blood pressure 155/74. Respiratory rate 17. O2 saturation 97% on room air. GENERAL: This is a 64-year-old obese male who is walking around in his hospital room. HEENT: Normocephalic, atraumatic. Pupils are equal and reactive. NECK: Supple without mass. RESPIRATORY: Essentially clear to auscultation bilaterally. CHEST: There is equal rise and fall of the chest with inspiration and expiration. CARDIOVASCULAR: Regular rate and rhythm. At times, he is slightly tachycardic. There is systolic murmur noted. GASTROINTESTINAL: Abdomen is soft, nondistended, nontender. Bowel sounds are positive. NEUROLOGIC: Awake, alert and oriented times three. Cranial nerves II-XII are grossly intact as tested. Bilateral wind farm support specialist show a slightly weaker right shirt cleaner. LABORATORY: Labs and films are as per history of present illness. HOSPITAL COURSE: The patient was placed in observation. He complained of increased anxiety and was given a Xanax. The TIA/CVA protocol was initiated and he was scheduled for an MRI of the brain as well as carotid ultrasound and an echocardiogram tomorrow. He was also started on his home medications as well as some Lopressor. This evening about 8:30 PM, he said he was going home, he did not want to stay in the hospital and he signed out against medical advice. I did instruct the patient to go see Dr. Sesay and that he needed the workup as soon as possible. DISCHARGE PLAN: The patient will be discharged home against medical advice. He is to followup with Dr. Sesay as soon as possible. In addition to his routine medications, I have advised him to take an aspirin as well as gave him a prescription for metoprolol tartrate 25 mg p.o. b.i.d. He needs to return to the hospital or followup with Dr. Sesay if there are any problems or complications. DISCHARGE MEDICATIONS: 1. Amlodipine. 2. Gabapentin. 3. Metoprolol tartrate. 4. Aspirin. #[id number] MTDD
[2019-09-28] MEDS ORDERED: amLODIPine BESYLATE 5 MG TAB PO SCH (09:00)
== END 2019-09-27 20:47 | disposition left against medical advice (07) ==
LOC: ER 11:21 → MS 14:04
PROVIDERS: ADMIT Nurse Practitioner Acute Care; ATTEND Nurse Practitioner Acute Care
DX: M62.81 Muscle weakness (generalized) (principal); R20.0 Anesthesia of skin; R20.2 Paresthesia of skin; I16.9 Hypertensive crisis, unspecified; I10 Essential (primary) hypertension; J44.9 Chronic obstructive pulmonary disease, unspecified; F17.210 Nicotine dependence, cigarettes, uncomplicated; E78.5 Hyperlipidemia, unspecified; K21.9 Gastro-esophageal reflux disease without esophagitis; Z53.29 Procedure and treatment not carried out because of patient's decision for other reasons; Z91.19 Patient's noncompliance with other medical treatment and regimen; Z79.899 Other long term (current) drug therapy; Z88.8 Allergy status to other drugs, medicaments and biological substances; Z60.2 Problems related to living alone
CPT/HCPCS: 96374; 96375; 96372; J2405; J1650; 82553; 80053; 82948; 85025; 82550; 85730; 85610; 84484; 36416; 71045; 70450; 94760; 99285; 93005

== ENCOUNTER → 2019-10-06 | Outpatient (CLI) | payer MEDICARE, MEDICAID ==
--- NOTE | 2019-10-06 11:54 | MRI ---
EXAM DESCRIPTION: Brain w/oContrast: MRI. CLINICAL HISTORY: IMPAIRED COGNITION. CT finding left periventricular frontal lobe white matter. COMPARISON: CT scan of the head September 26 TECHNIQUE: Multiplanar, high-field MRI unit, multiple diffusion sequences, multiple conventional sequences without contrast. FINDINGS: Bilateral small scattered foci of hyperintense FLAIR and T2-weighted signal in the periventricular white matter and correa/sub-cortical white matter junctions of the cerebral hemispheres. Asymmetric focal lesion left frontal periventricular white matter/monet radiata at the level of the upper left ventricular body on axial FLAIR sequence image 14 and 15. No diffusion restriction. Asymmetric similar signal right frontal cortical correa matter parasagittal near the vertex on images 20 and 19. No diffusion restriction. No hemorrhage, no cerebral edema, no midline shift.. Normal signal in the bilateral basal ganglia. Normal signal in the brainstem and cerebellar hemispheres. Concordance of the diffusion and non-diffusion sequences with no diffusion restriction. Cortical sulci, ventricles, and other CSF spaces, and the subdural spaces are normally configured for the patient's age.. No effacement or displacement. No midline shift. No extra-axial hemorrhage. Restricted flow signal void in the transverse petrous segment of the left ICA continuing into the carotid siphon and the supraclinoid segment to the bifurcation. Symmetric appearance of the M1 segment of the bilateral MCAs with the A1 segment of the left JOE smaller than the right A1 segment. Anterior communicating artery and A2 segments appears symmetric. Question of decreased flow signal void on the left side of the gretchen contralateral to the tortuous basilar artery to the right of the gretchen. Left vertebral artery is dominant compared to the right. IACs are symmetric bilaterally. No fluid signal bilateral mastoid air cells. No mass effect bilateral cerebellopontine angles. Pituitary gland occupies entire sella. Base of the cerebellar tonsils is above the foramen magnum. Fluid signal versus bone in the right frontal air cells. More consistent with bone on the CT scan. Remaining included paranasal sinuses are unremarkable.. The bony calvarium is intact. IMPRESSION: 1. Asymmetric white matter lesions right parasagittal frontal lobe near the vertex and left frontal lobe monet radiata abutting the anterior left ventricular body. Not associated with hemorrhage, mass effect, or diffusion restriction. Left frontal lobe lesion seen on CT scan. 2. MRI restricted flow signal in the left ICA from the transverse petrous segment to the supraclinoid segment bifurcation. Also decreased signal void in the left A1 segment. This could represent stenosis. Consider follow-up CTA brain and carotid vertebral systems, or MRA brain and carotid vertebral systems noncontrast. Electronically signed by: Patrick Julian MD 10/06/2019 11:53 AM CDT
== END ==
LOC: MRI 09:30
PROVIDERS: ATTEND Nurse Practitioner Family
DX: R90.82 White matter disease, unspecified (principal); G93.9 Disorder of brain, unspecified; I25.10 Atherosclerotic heart disease of native coronary artery without angina pectoris

== ENCOUNTER → 2019-10-10 | Outpatient (CLI) | payer MEDICARE, MEDICAID ==
--- NOTE | 2019-10-11 10:28 | US ---
EXAM DESCRIPTION: Carotid Duplex: ULTRASOUND. CLINICAL HISTORY: 64 years Male CORONARY ARTERIOSCLEROSIS COMPARISON: MRI scan brain October 05. CT scan brain September 26. TECHNIQUE: Transcutaneous scanning utilizing correa-scale and Doppler modes to evaluate the bilateral carotid systems and vertebral arteries. Percentage of diameter of stenosis or no stenosis recorded will be based upon NASCET criteria. FINDINGS: Peak systolic/end diastolic (CM-Sec) CCA Right 90/7 Left 70/0. ICA Right proximal 70/12, mid 127/27. Left proximal no flow, Distal no flow. Vertebral Right 28/6 Left 60/5. ECA (PS Only) Right 158 left 137. ICA/CCA peak systolic ratio: Right 1.4 Left no flow ICA/CCA end diastolic ratio: Right 3.7 Left n/a Vertebral arteries: antegrade flow. Comments: Atherosclerotic calcification in the carotid bifurcations, more on the left. Spectral broadening in color turbulent flow in the right ICA. 100% stenosis in the proximal left ICA.. IMPRESSION: 1. Doppler evaluation of the bilateral carotid systems and vertebral arteries shows 100% stenosis in the proximal left ICA extending to the cervical segment left ICA 2. Significant amount of plaque in the carotid arteries bilaterally, particularly left common carotid bifurcation. Bilateral vertebral arteries showed antegrade-cephalad flow. CRITICAL COMMUNICATION: The critical value was communicated directly by Dr. Julian via phone call, with Dr. Sesay's associate, ARLYN Vang, at approximately 1025 hours, on October 11, 2019. Electronically signed by: Patrick Julian MD 10/11/2019 10:27 AM CDT
== END ==
LOC: US 09:30
PROVIDERS: ATTEND Nurse Practitioner Family
DX: I25.10 Atherosclerotic heart disease of native coronary artery without angina pectoris (principal); I65.23 Occlusion and stenosis of bilateral carotid arteries; R41.89 Other symptoms and signs involving cognitive functions and awareness

== ENCOUNTER → 2020-06-20 | Outpatient (CLI) | payer MEDICARE, MEDICAID ==
--- NOTE | 2020-06-20 16:07 | RAD ---
EXAM DESCRIPTION: Chest,1 View (accession [id number]), Ribs,Left 3 Views (accession [id number]) CLINICAL HISTORY: 65 years Male, PLEURODYNIA, RIB PN COMPARISON: None. TECHNIQUE: AP portable chest. FINDINGS: Chest x-ray one view Heart size is prominent with normal pulmonary vascularity. No consolidating infiltrate. Overlying soft tissue density is thought to account for appearance of the right lower lung zone peripherally. No pulmonary mass or worrisome nodule. No pneumothorax or pleural effusion. Rib series Bone detail films of the left ribs are included. No rib fracture. No bony destructive lesion. IMPRESSION: No acute process is identified in the chest. Negative left rib series. Electronically signed by: Nicholas Garcia MD 06/20/2020 4:06 PM [facility]
--- NOTE | 2020-06-20 16:08 | RAD ---
EXAM DESCRIPTION: Chest,1 View (accession [id number]), Ribs,Left 3 Views (accession [id number]) CLINICAL HISTORY: 65 years Male, PLEURODYNIA, RIB PN COMPARISON: None. TECHNIQUE: AP portable chest. FINDINGS: Chest x-ray one view Heart size is prominent with normal pulmonary vascularity. No consolidating infiltrate. Overlying soft tissue density is thought to account for appearance of the right lower lung zone peripherally. No pulmonary mass or worrisome nodule. No pneumothorax or pleural effusion. Rib series Bone detail films of the left ribs are included. No rib fracture. No bony destructive lesion. IMPRESSION: No acute process is identified in the chest. Negative left rib series. Electronically signed by: Nicholas Garcia MD 06/20/2020 4:06 PM [facility]
== END ==
LOC: RAD 10:05
PROVIDERS: ATTEND Nurse Practitioner Family
DX: R07.81 Pleurodynia (principal)